=== PATIENT | female | born 1960 ===

== ENCOUNTER 2023-05-30 15:00 | Emergency (ER) | payer MEDICARE, MEDICAID ==
[~2023-05-30] VITALS: Ht 170.2 cm; Wt 71.4 kg
[2023-05-30 15:01] VITALS: BP 151/77; PULSE 76; RESP 16; TEMP 97.7; O2SAT 97
== END 2023-05-30 15:58 | disposition home or self-care (01) ==
LOC: ER 15:01
DX: S60.222D Contusion of left hand, subsequent encounter (principal); X58.XXXD Exposure to other specified factors, subsequent encounter
CPT/HCPCS: 99281